=== PATIENT | male | born 1975 | race African-American/Black ===

== ENCOUNTER 2016-09-30 16:28 | Outpatient (CLI) | payer OTHER, SELFPAY ==
[2016-09-30 17:11] LABS: #Basophils 0.1 thou/uL (0.0-0.2); #Eosinphils 0.2 thou/uL (0.0-0.7); #Lymphocytes 1.8 thou/uL (1.20-3.40); #Monocytes 0.6 thou/uL (0.11-0.59); #Neutrophils 2.3 thou/uL (1.40-6.50); %Basophils 1.4 % (0.0-1.0); %Eosinophils 4.7 % (0.0-10.0); %Lymphocytes 36.1 % (21.0-51.0); %Monocytes 11.2 % (0.0-10.0); Hematocrit 44.7 % (42.0-52.0); Red Blood Cell (RBC) Count 4.76 mill/uL (4.70-6.10)
[2016-09-30 17:22] LABS: Hemoglobin A1c 5.3 % (4.0-6.0)
== END 2016-09-30 16:29 | disposition home or self-care (01) ==
LOC: NAV SJFMSP 16:28
PROVIDERS: ATTEND Family Medicine
DX: E78.5 Hyperlipidemia, unspecified (principal)
CPT/HCPCS: 80061; 83036; 84439; 84443; 85025

== ENCOUNTER 2016-10-25 03:43 | Emergency (ER) | payer OTHER ==
[2016-10-25] MEDS ORDERED: Ibuprofen 800 MG TAB ONE (04:12)
[2016-10-25] MEDS ORDERED: Oseltamivir 75 MG CAP ONE (04:37)
== END 2016-10-25 04:43 | disposition home or self-care (01) ==
LOC: NAV ERS 03:43
DX: J10.1 Influenza due to other identified influenza virus with other respiratory manifestations (principal)
CPT/HCPCS: 99283

== ENCOUNTER 2017-06-04 07:23 | Emergency (ER) | payer OTHER ==
[2017-06-04] MEDS ORDERED: Ketorolac Tromethamine 60 MG/2 ML VIAL ONE (08:03)
== END 2017-06-04 09:00 | disposition home or self-care (01) ==
LOC: NAV ERS 07:23
DX: B34.9 Viral infection, unspecified (principal); J01.90 Acute sinusitis, unspecified; M54.5 Low back pain
CPT/HCPCS: 96372; J1885

== ENCOUNTER 2018-04-27 18:34 | Emergency (ER) | payer OTHER ==
[2018-04-27] MEDS ORDERED: predniSONE 20 MG TAB ONE (18:55)
== END 2018-04-27 19:00 | disposition home or self-care (01) ==
LOC: NAV ERS 18:34
DX: J06.9 Acute upper respiratory infection, unspecified (principal)
CPT/HCPCS: 99283; J7506

== ENCOUNTER 2019-09-27 19:33 | Emergency (ER) | payer OTHER | END 2019-09-27 19:50 | disposition home or self-care (01) | LOC: NAV ERS 19:33 | DX: S00.93XA Contusion of unspecified part of head, initial encounter (principal); K21.9 Gastro-esophageal reflux disease without esophagitis; Z79.899 Other long term (current) drug therapy; W22.8XXA Striking against or struck by other objects, initial encounter; Y93.89 Activity, other specified | CPT/HCPCS: 99283 ==

== ENCOUNTER 2020-05-21 22:04 | Emergency (ER) | payer OTHER ==
[2020-05-21] MEDS ORDERED: Ketorolac Tromethamine 60 MG/2 ML VIAL ONE (22:28)
== END 2020-05-21 22:46 | disposition home or self-care (01) ==
LOC: NAV ERS 22:04
DX: S39.012A Strain of muscle, fascia and tendon of lower back, initial encounter (principal); X50.9XXA Other and unspecified overexertion or strenuous movements or postures, initial encounter; Y92.096 Garden or yard of other non-institutional residence as the place of occurrence of the external cause
CPT/HCPCS: J1885

== ENCOUNTER 2020-11-06 13:17 | Emergency (ER) | payer OTHER ==
[2020-11-06 13:43] LABS: Bacteria/HPF None Seen HPF (None Seen); Bilirubin Negative (Negative); Blood, Urine Negative (Negative); Clarity Clear (Clear); Glucose, Urine (Dipstick) Negative (Negative); Ketone, Urine Negative (Negative); Leukocyte Negative (Negative); Nitrite Negative (Negative); Protein, Urine (Dipstick) Negative (Neg-Trace); RBC/HPF None Seen HPF (0-3); Specific Gravity, Urine 1.025 (1.005-1.030); Squamous Epithelial None Seen HPF (0-3); Trichomonas/HPF None Seen HPF (None Seen); Urobilinogen 0.2 mg/dL (Less than 2); WBC/HPF None Seen HPF (0-3); pH, Urine 6.5 (5.0-9.0)
== END 2020-11-06 14:15 | disposition home or self-care (01) ==
LOC: NAV ERS 13:17
DX: Z20.2 Contact with and (suspected) exposure to infections with a predominantly sexual mode of transmission (principal)
CPT/HCPCS: 99283

== ENCOUNTER 2023-04-08 17:43 | Emergency (ER) | payer BC ==
[2023-04-08] MEDS ORDERED: Ibuprofen 800 MG TAB ONE (17:55)
[2023-04-08] MEDS ORDERED: Cephalexin 250 MG CAP ONE (18:01)
== END 2023-04-08 18:04 | disposition home or self-care (01) ==
LOC: NAV ERS 17:43
DX: L03.012 Cellulitis of left finger (principal)
CPT/HCPCS: 99283

== ENCOUNTER 2024-01-20 18:09 | Emergency (ER) | payer BC ==
[2024-01-20] MEDS ORDERED: Ibuprofen 800 MG TAB ONE (19:31)
== END 2024-01-20 19:35 | disposition home or self-care (01) ==
LOC: NAV ERS 18:09
DX: S52.571A Other intraarticular fracture of lower end of right radius, initial encounter for closed fracture (principal); W01.0XXA Fall on same level from slipping, tripping and stumbling without subsequent striking against object, initial encounter